=== PATIENT | female | born 1950 | race Caucasian/White ===

== ENCOUNTER 2021-10-17 12:26 | Emergency (ER) | payer MEDICARE ==
[~2021-10-17] VITALS: Ht 167.6 cm; Wt 61.3 kg
[2021-10-17 13:07] LABS: BASO # 0.1 x10^3/uL (0.0-0.2); BASO % 0 % (0-3); EOS % 0 % (0-3); HEMATOCRIT 41.8 % (36.0-47.0); HEMOGLOBIN 13.7 g/dL (12.0-15.5); LYMPH # 1.5 x10^3/uL (1.0-4.8); LYMPH % 9 % (24-48); MEAN CORPUSCULAR HEMOGLOBIN 33 pg (25-35); MEAN CORPUSCULAR HGB CONC 33 g/dL (31-37); MEAN CORPUSCULAR VOLUME 101 fL (79-100); MONO # 0.7 x10^3/uL (0.0-1.1); MONO % 4 % (0-9); NEUT # 14.5 x10^3/uL (1.8-7.7); NEUT % 86 % (31-73); PLATELET COUNT 397 x10^3/uL (140-400); RED BLOOD COUNT 4.13 x10^6/uL (3.50-5.40); WHITE BLOOD COUNT 16.9 x10^3/uL (4.0-11.0)
[2021-10-17 13:17] LABS: CALCIUM 9.7 mg/dL (8.5-10.1); CREATININE 0.8 mg/dL (0.6-1.0); GFR 70.7; POTASSIUM 4.5 mmol/L (3.5-5.1)
[2021-10-17 13:25] LABS: ALBUMIN 3.8 g/dL (3.4-5.0); ALBUMIN/GLOBULIN RATIO 1.1 (1.0-1.7); TOTAL BILIRUBIN 0.5 mg/dL (0.2-1.0); TOTAL PROTEIN 7.2 g/dL (6.4-8.2)
--- NOTE | 2021-10-17 13:41 | RAD ---
EXAM: Chest, single view. HISTORY: Chest pain. COMPARISON: None. FINDINGS: A frontal view of the chest is obtained. There is linear atelectasis or scarring within the lingula. There is no infiltrate, pleural effusion or pneumothorax. The heart is normal in size. IMPRESSION: No acute pulmonary finding. Electronically signed by: Ina Moody MD (10/17/2021 1:38 PM) [id number]
[2021-10-17 13:42] LABS: % BANDS 2 % (0-9); % LYMPHS 10 % (24-48); % MONOS 4 % (0-10); % SEGS 84 % (35-66); PLT ESTIMATE ADEQUATE (ADEQUATE)
--- NOTE | 2021-10-17 14:02 | PHYS DOC ---
Past Medical History Additional Past Medical Histor: POLYMYALGIA rheumatica on chronic steroids and methotrexate Past Surgical History: Other Additional Past Surgical Histo: TUMMY TUCK,MINI FACE LIFT Smoking Status: Never Smoker Alcohol Use: Occasionally General Adult EDM: Chief Complaint: CHEST PAIN HPI: HPI: Patient is a 71 year old female with history of HLD, polymyalgia rheumatica on immunosuppressant therapy who presents with chest pain. Awoke with substernal discomfort at approximately 3 AM. Accompanied with indigestion and sweatiness. This improved on its own over the next hour. It is completely dissipated then at noon had similar symptoms while shopping. Denied shortness of breath. No lower extremity edema. Denies any exertional component to the pain. Described as sharp. It does radiate towards the back. The second episode of pain has completely self resolved as well. She states that she is under tremendous amount of stress, she is coordinating and moved from [place] to here, and has several appointments that she needs to make before her flight back. She states she has a history of indigestion, this feels very similar. Review of Systems: Review of Systems: Constitutional: Denies fever or chills. [] Eyes: Denies change in visual acuity. [] HENT: Denies nasal congestion or sore throat. [] Respiratory: Denies cough or shortness of breath. [] Cardiovascular: Reports chest discomfort. GI: Denies abdominal pain, nausea, vomiting, bloody stools or diarrhea. [] : Denies dysuria. [] Musculoskeletal: Denies back pain or joint pain. [] Integument: Denies rash. [] Neurologic: Denies headache, focal weakness or sensory changes. [] Psychiatric: Denies depression. Reports stress and anxiety. Heart Score: C/O Chest Pain: Yes HEART Score for Chest Pain: HEART Score for Chest Pain Response (Comments) Value History Slighlty/Non-Suspicious 0 ECG Normal 0 Age > 65 2 Risk Factors 1 or 2 Risk Factors 1 Troponin < Normal Limit 0 Total 3 Risk Factors: Risk Factors: Hyperlipidemia Risk Scores: Score 0 - 3: 2.5% MACE over next 6 weeks - Discharge Home Allergies: Allergies: Allergies Coded Allergies Type Severity Reaction Last Updated Verified No Known Drug Allergies 10/17/21 No Physical Exam: PE: Constitutional: Well developed, well nourished, no acute distress, non-toxic appearance. [] HENT: Normocephalic, atraumatic, Eyes: PERRLA, EOMI, conjunctiva normal, no discharge. [] Neck: Normal range of motion, no tenderness, supple, no stridor. [] Cardiovascular:Heart rate regular rhythm, no murmur [] Lungs & Thorax: Bilateral breath sounds clear to auscultation [] Abdomen: Soft, nontender to palpation. Skin: Warm, dry, no erythema, no rash. [] ] Extremities: DP and radial pulses palpable, 2+ bilaterally. No lower extremity edema. Neurologic: Alert and oriented X 3, normal motor function, normal sensory function, no focal deficits noted. [] Psychologic: Anxious mood, congruent affect. Current Patient Data: Labs: Laboratory Tests Test 10/17/21 12:55 White Blood Count 16.9 x10^3/uL (4.0-11.0) H Red Blood Count 4.13 x10^6/uL (3.50-5.40) Hemoglobin 13.7 g/dL (12.0-15.5) Hematocrit 41.8 % (36.0-47.0) Mean Corpuscular Volume 101 fL (79-100) H Mean Corpuscular Hemoglobin 33 pg (25-35) Mean Corpuscular Hemoglobin Concent 33 g/dL (31-37) Red Cell Distribution Width 15.0 % (11.5-14.5) H Platelet Count 397 x10^3/uL (140-400) Neutrophils (%) (Auto) 86 % (31-73) H Lymphocytes (%) (Auto) 9 % (24-48) L Monocytes (%) (Auto) 4 % (0-9) Eosinophils (%) (Auto) 0 % (0-3) Basophils (%) (Auto) 0 % (0-3) Neutrophils # (Auto) 14.5 x10^3/uL (1.8-7.7) H Lymphocytes # (Auto) 1.5 x10^3/uL (1.0-4.8) Monocytes # (Auto) 0.7 x10^3/uL (0.0-1.1) Eosinophils # (Auto) 0.0 x10^3/uL (0.0-0.7) Basophils # (Auto) 0.1 x10^3/uL (0.0-0.2) Segmented Neutrophils % 84 % (35-66) H Band Neutrophils % 2 % (0-9) Lymphocytes % 10 % (24-48) L Monocytes % 4 % (0-10) Platelet Estimate Adequate (ADEQUATE) Large Platelets Few Sodium Level 136 mmol/L (136-145) Potassium Level 4.5 mmol/L (3.5-5.1) Chloride Level 99 mmol/L (98-107) Carbon Dioxide Level 26 mmol/L (21-32) Anion Gap 11 (6-14) Blood Urea Nitrogen 37 mg/dL (7-20) H Creatinine 0.8 mg/dL (0.6-1.0) Estimated GFR (Cockcroft-Gault) 70.7 BUN/Creatinine Ratio 46 (6-20) H Glucose Level 84 mg/dL (70-99) Calcium Level 9.7 mg/dL (8.5-10.1) Total Bilirubin 0.5 mg/dL (0.2-1.0) Aspartate Amino Transferase (AST) 20 U/L (15-37) Alanine Aminotransferase (ALT) 49 U/L (14-59) Alkaline Phosphatase 63 U/L (46-116) Troponin I High Sensitivity 10 ng/L (4-50) Total Protein 7.2 g/dL (6.4-8.2) Albumin 3.8 g/dL (3.4-5.0) Albumin/Globulin Ratio 1.1 (1.0-1.7) Laboratory Tests 10/17/21 12:55 Laboratory Tests 10/17/21 12:55 Vital Signs: Vital Signs Date Time Temp Pulse Resp B/P (MAP) Pulse Ox O2 Delivery O2 Flow Rate FiO2 10/17/21 12:33 98.5 81 18 215/91 (132) 18 Room Air 98.5 EKG: EKG: Sinus rhythm. Rate 87. Normal axis. Normal intervals. QTc 376. No ST elevation, or depression. No pathologic Q waves or T wave inversions. [] Radiology/Procedures: Radiology/Procedures: [] Impression: [id number] [place] [address] IMAGING REPORT Signed PATIENT: CHALINO BORGESACCOUNT: [id number] : 1950 LOCATION: ER AGE: 71 SEX: F EXAM STATUS: PRE ER ORD. PHYSICIAN: JAZMIN URBINA MD REASON: chest pain PROCEDURE: PORTABLE CHEST 1V EXAM: Chest, single view. HISTORY: Chest pain. COMPARISON: None. FINDINGS: A frontal view of the chest is obtained. There is linear atelectasis or scarring within the lingula. There is no infiltrate, pleural effusion or pneumothorax. The heart is normal in size. IMPRESSION: No acute pulmonary finding. Electronically signed by: Ina Nowak MD (10/17/2021 1:38 PM) [id number] DICTATED and SIGNED BY: INA NOWAK MD DATE: 10/17/21 [id number] 0 Course & Med Decision Making: Course & Med Decision Making Pertinent Labs and Imaging studies reviewed. (See chart for details) Patient is 71-year-old female with history of polymyalgia rheumatica on chronic prednisone/methotrexate, GERD, and HLD who presents with 2 episodes of self resolving chest discomfort. Now asymptomatic. On arrival is afebrile, hemodynamically stable. Well- appearing on examination. Chest x-ray clear without acute pulmonary process. WBC 16k, but is on chronic prednisone. She denies any infectious symptoms. No lower extremity edema, shortness of breath, or vital sign abnormalities to suggest DVT/PE. HEART score is 3, first troponin is negative, and EKG is non-ischemic. Given the timing of her chest discomfort with the second episode being 1 hour prior to arrival, I had recommended serial troponins. The patient states that she will be unable to stay due to previous obligations. She understands the risk that we may be missing a heart attack. She states she will return to the emergency department if she has chest pain that returns and is constant, or is exertional in nature, or if she does develop shortness of breath. She has a primary care physician, that she can follow-up with closely in [place]. I explained the incomplete work-up, and that she may need to have further testing such as a stress test. She voices understanding. 1030 Maria Victoria Disclaimer: Maria Victoria Disclaimer: This electronic medical record was generated, in whole or in part, using a voice recognition dictation system. Departure Departure Impression: Primary Impression: Chest pain Disposition: 01 HOME / SELF CARE / HOMELESS Condition: STABLE Additional Instructions: Your work-up showed a normal chest x-ray and blood work that did not show any signs of a heart attack. There is still a chance this could be heart related, and given the timing of the blood work even that we may have been missing a heart attack. It is very important that you follow-up with your PCP for consideration of furt her testing, such as a stress test. If you develop constant chest pain, exertional chest pain, shortness of breath, fever/chills, or other new/concerning symptoms please return to the emergency department immediately for reevaluation. JAZMIN URBINA MD Oct 17, 2021 14:02
[2021-10-17 15:08] VITALS: BP 176/77
--- NOTE | 2021-10-18 11:38 | EKG ---
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
== END 2021-10-17 15:13 | disposition home or self-care (01) ==
LOC: ER 12:26
DX: R07.89 Other chest pain (principal)
CPT/HCPCS: 36415; 71045; 80053; 83690; 84484; 85007; 85025; 93005; 99285-25